=== PATIENT | male | born 1990 | race African-American/Black ===

== ENCOUNTER 2018-02-19 21:22 | Emergency (ER) | payer SELFPAY ==
--- NOTE | 2018-02-19 23:11 | EDM.PDOC ---
ED HPI GENERAL MEDICAL PROBLEM - General Chief Complaint: Respiratory Problem Stated Complaint: CHEST PAIN Time Seen by Provider: 02/19/18 23:10 - History of Present Illness INITIAL COMMENTS - FREE TEXT/NARRATIVE: 27-year-old male presents emergency room with chest pain and neck pain. Patient awoke with pretty significant right-sided neck pain this morning. This pain at times radiates down the side of his right posterior chest wall. It does not go into his arms. He does not have shortness of breath however deep breathing makes the pain a little bit worse. The pain is also worsened by change of position and movement. The pain patient does not have worsening pain with walking or physical exertion unless he pulls the muscles the wrong way. Patient's past medical history is noncontributory and otherwise unremarkable. Family history father with coronary artery disease at approximately age 60 Chest Pain Score (Numeric/FACES): 7 - Related Data Allergies Allergy/AdvReac Type Severity Reaction Status Date / Time No Known Allergies Allergy Verified 02/19/18 21:35 Home Meds: Home Meds . [No Known Home Meds] 02/19/18 [History] Past Medical History - Past Health History Medical/Surgical History: Denies Medical/Surgical History Social & Family History - Tobacco Use Smoking Status *Q: Current Every Day Smoker Years of Tobacco use: 1 Packs/Tins Daily: 0.5 - Recreational Drug Use Recreational Drug Use: No ED ROS GENERAL - Review of Systems Review Of Systems: See Below Constitutional: Reports: No Symptoms HEENT: Reports: No Symptoms Respiratory: Reports: Pleuritic Chest Pain. Denies: No Symptoms Cardiovascular: Reports: No Symptoms Endocrine: Reports: No Symptoms GI/Abdominal: Reports: No Symptoms : Reports: No Symptoms Neurological: Reports: No Symptoms ED EXAM, GENERAL - Physical Exam Exam: See Below Exam Limited By: No Limitations General Appearance: Alert, No Apparent Distress Head: Atraumatic, Normocephalic Neck: Normal Inspection, Supple, Non-Tender, Full Range of Motion Respiratory/Chest: No Respiratory Distress, Lungs Clear, Normal Breath Sounds Cardiovascular: Regular Rate, Rhythm, No Edema, No Murmur GI/Abdominal: Normal Bowel Sounds, Soft, Non-Tender Back Exam: Normal Inspection, Other (Patient has marked discomfort in the right paraspinous muscles in the cervical spine in down into the thoracic spine palpation of this elicits the patient's discomfort.). No: CVA Tenderness (L), CVA Tenderness (R) Neurological: Alert, Oriented, Normal Cognition Skin Exam: Warm, Dry, Intact EKG INTERPRETATION EKG Date: 02/20/18 Rhythm: NSR [place]: Normal P-Wave: Present QRS: Normal ST-T: Other (Nonspecific ST elevation in V1 V2 V3.) QT: Normal Comparison: NA - No Prior EKG EKG Interpretation Comments: Abnormal Course - Vital Signs Last Recorded V/S: Last Vital Signs Temp 36.1 C 02/19/18 21:32 Pulse 62 02/19/18 22:45 Resp 16 02/19/18 22:45 BP 140/99 H 02/19/18 22:45 Pulse Ox 98 02/19/18 22:45 - Orders/Labs/Meds Orders: Active Orders 24 hr Category Date Time Status EKG Documentation Completion [RC] STAT Care 02/19/18 23:20 Active Chest 1V Frontal [CR] Stat Exams 02/19/18 21:42 Taken Labs: Laboratory Tests 02/19/18 02/19/18 02/19/18 Range/Units 22:00 22:00 22:00 WBC 4.02 L (4.23-9.07) K/mm3 RBC 4.49 L (4.63-6.08) M/mm3 Hgb 12.6 L (13.7-17.5) gm/L Hct 37.7 L (40.1-51.0) % MCV 84.0 (79.0-92.2) fl MCH 28.1 (25.7-32.2) pg MCHC 33.4 (32.2-35.5) g/dl RDW Std Deviation 38.4 (35.1-43.9) fL Plt Count 185 (163-337) K/mm3 MPV 11.1 (9.4-12.3) fl Neut % (Auto) 52.1 (34.0-67.9) % Lymph % (Auto) 39.3 (21.8-53.1) % Rhea % (Auto) 7.2 (5.3-12.2) % Eos % (Auto) 1.0 (0.8-7.0) Baso % (Auto) 0.2 (0.1-1.2) % Neut # (Auto) 2.09 (1.78-5.38) K/mm3 Lymph # (Auto) 1.58 (1.32-3.57) K/mm3 Rhea # (Auto) 0.29 L (0.30-0.82) K/mm3 Eos # (Auto) 0.04 (0.04-0.54) K/mm3 Baso # (Auto) 0.01 (0.01-0.08) K/mm3 PT (9.5-12.1) SECONDS INR APTT (24-31) SECONDS D-Dimer, Quantitative < 0.19 L (0.19-0.50) mg/L Sodium 142 (136-145) mEq/L Potassium 3.5 (3.5-5.1) mEq/L Chloride 106 (98-107) mEq/L Carbon Dioxide 26 (21-32) mEq/L Anion Gap 13.5 (5-15) BUN 16 (7-18) mg/dL Creatinine 1.2 (0.7-1.3) mg/dL Est Cr Clr Drug Dosing 107.51 mL/min Estimated GFR (MDRD) > 60 (>60) mL/min BUN/Creatinine Ratio 13.3 L (14-18) Glucose 94 (74-106) mg/dL Calcium 8.7 (8.5-10.1) mg/dL Total Bilirubin 0.5 (0.2-1.0) mg/dL AST 21 (15-37) U/L ALT 26 (16-63) U/L Alkaline Phosphatase 47 (46-116) U/L Troponin I (0.00-0.056) ng/mL Total Protein 7.6 (6.4-8.2) g/dl Albumin 3.9 (3.4-5.0) g/dl Globulin 3.7 gm/dL Albumin/Globulin Ratio 1.1 (1-2) Urine Color (Yellow) Urine Appearance (Clear) Urine pH (5.0-8.0) Ur Specific [place] (1.005-1.030) Urine Protein (Negative) Urine Glucose (UA) (Negative) Urine Ketones (Negative) Urine Occult Blood (Negative) Urine Nitrite (Negative) Urine Bilirubin (Negative) Urine Urobilinogen (0.2-1.0) Ur Leukocyte Esterase (Negative) Urine RBC (0-5) /hpf Urine WBC (0-5) /hpf Ur Epithelial Cells Ur Squamous Epith Cells (0-5) /hpf Urine Bacteria (FEW) /hpf Urine Mucus (FEW) /hpf Urine Opiates Screen (VYZOQR=381) Ur Buprenorphine Scrn (CUTOFF=10) Ur Oxycodone Screen (WAJ7MQ=028) Urine Methadone Screen (DXP5EY=950) Ur Propoxyphene Screen (PJUTYM=347) Ur Barbiturates Screen (GOEPDA=560) Ur Tricyclics Screen (IFYKWT=530) Ur Phencyclidine Scrn (CUTOFF=25) Ur Amphetamine Screen (KLUTFF=079) U Methamphetamines Scrn (XJSBXT=135) U Benzodiazepines Scrn (GJSMPW=108) U Cocaine Metab Screen (YSILQV=432) U Marijuana (THC) Screen (CUTOFF=50) 02/19/18 02/19/18 02/20/18 Range/Units 22:00 22:00 00:20 WBC (4.23-9.07) K/mm3 RBC (4.63-6.08) M/mm3 Hgb (13.7-17.5) gm/L Hct (40.1-51.0) % MCV (79.0-92.2) fl MCH (25.7-32.2) pg MCHC (32.2-35.5) g/dl RDW Std Deviation (35.1-43.9) fL Plt Count (163-337) K/mm3 MPV (9.4-12.3) fl Neut % (Auto) (34.0-67.9) % Lymph % (Auto) (21.8-53.1) % Rhea % (Auto) (5.3-12.2) % Eos % (Auto) (0.8-7.0) Baso % (Auto) (0.1-1.2) % Neut # (Auto) (1.78-5.38) K/mm3 Lymph # (Auto) (1.32-3.57) K/mm3 Rhea # (Auto) (0.30-0.82) K/mm3 Eos # (Auto) (0.04-0.54) K/mm3 Baso # (Auto) (0.01-0.08) K/mm3 PT 11.0 (9.5-12.1) SECONDS INR 1.01 APTT 28 (24-31) SECONDS D-Dimer, Quantitative (0.19-0.50) mg/L Sodium (136-145) mEq/L Potassium (3.5-5.1) mEq/L Chloride (98-107) mEq/L Carbon Dioxide (21-32) mEq/L Anion Gap (5-15) BUN (7-18) mg/dL Creatinine (0.7-1.3) mg/dL Est Cr Clr Drug Dosing mL/min Estimated GFR (MDRD) (>60) mL/min BUN/Creatinine Ratio (14-18) Glucose (74-106) mg/dL Calcium (8.5-10.1) mg/dL Total Bilirubin (0.2-1.0) mg/dL AST (15-37) U/L ALT (16-63) U/L Alkaline Phosphatase (46-116) U/L Troponin I < 0.017 < 0.017 (0.00-0.056) ng/mL Total Protein (6.4-8.2) g/dl Albumin (3.4-5.0) g/dl Globulin gm/dL Albumin/Globulin Ratio (1-2) Urine Color (Yellow) Urine Appearance (Clear) Urine pH (5.0-8.0) Ur Specific [place] (1.005-1.030) Urine Protein (Negative) Urine Glucose (UA) (Negative) Urine Ketones (Negative) Urine Occult Blood (Negative) Urine Nitrite (Negative) Urine Bilirubin (Negative) Urine Urobilinogen (0.2-1.0) Ur Leukocyte Esterase (Negative) Urine RBC (0-5) /hpf Urine WBC (0-5) /hpf Ur Epithelial Cells Ur Squamous Epith Cells (0-5) /hpf Urine Bacteria (FEW) /hpf Urine Mucus (FEW) /hpf Urine Opiates Screen (FRFAHH=724) Ur Buprenorphine Scrn (CUTOFF=10) Ur Oxycodone Screen (HKT9IP=443) Urine Methadone Screen (NDO3MD=180) Ur Propoxyphene Screen (DCVXHP=010) Ur Barbiturates Screen (LCMMPL=695) Ur Tricyclics Screen (QXDPUB=850) Ur Phencyclidine Scrn (CUTOFF=25) Ur Amphetamine Screen (NPMWII=937) U Methamphetamines Scrn (ELIQWN=937) U Benzodiazepines Scrn (JTIEIB=497) U Cocaine Metab Screen (NAOGSU=872) U Marijuana (THC) Screen (CUTOFF=50) 02/20/18 02/20/18 Range/Units 01:15 01:15 WBC (4.23-9.07) K/mm3 RBC (4.63-6.08) M/mm3 Hgb (13.7-17.5) gm/L Hct (40.1-51.0) % MCV (79.0-92.2) fl MCH (25.7-32.2) pg MCHC (32.2-35.5) g/dl RDW Std Deviation (35.1-43.9) fL Plt Count (163-337) K/mm3 MPV (9.4-12.3) fl Neut % (Auto) (34.0-67.9) % Lymph % (Auto) (21.8-53.1) % Rhea % (Auto) (5.3-12.2) % Eos % (Auto) (0.8-7.0) Baso % (Auto) (0.1-1.2) % Neut # (Auto) (1.78-5.38) K/mm3 Lymph # (Auto) (1.32-3.57) K/mm3 Rhea # (Auto) (0.30-0.82) K/mm3 Eos # (Auto) (0.04-0.54) K/mm3 Baso # (Auto) (0.01-0.08) K/mm3 PT (9.5-12.1) SECONDS INR APTT (24-31) SECONDS D-Dimer, Quantitative (0.19-0.50) mg/L Sodium (136-145) mEq/L Potassium (3.5-5.1) mEq/L Chloride (98-107) mEq/L Carbon Dioxide (21-32) mEq/L Anion Gap (5-15) BUN (7-18) mg/dL Creatinine (0.7-1.3) mg/dL Est Cr Clr Drug Dosing mL/min Estimated GFR (MDRD) (>60) mL/min BUN/Creatinine Ratio (14-18) Glucose (74-106) mg/dL Calcium (8.5-10.1) mg/dL Total Bilirubin (0.2-1.0) mg/dL AST (15-37) U/L ALT (16-63) U/L Alkaline Phosphatase (46-116) U/L Troponin I (0.00-0.056) ng/mL Total Protein (6.4-8.2) g/dl Albumin (3.4-5.0) g/dl Globulin gm/dL Albumin/Globulin Ratio (1-2) Urine Color Yellow (Yellow) Urine Appearance Clear (Clear) Urine pH 6.0 (5.0-8.0) Ur Specific [place] 1.020 (1.005-1.030) Urine Protein Negative (Negative) Urine Glucose (UA) Negative (Negative) Urine Ketones Negative (Negative) Urine Occult Blood Negative (Negative) Urine Nitrite Negative (Negative) Urine Bilirubin Negative (Negative) Urine Urobilinogen 0.2 (0.2-1.0) Ur Leukocyte Esterase Negative (Negative) Urine RBC 0-5 (0-5) /hpf Urine WBC 0-5 (0-5) /hpf Ur Epithelial Cells Not Reportable Ur Squamous Epith Cells 0-5 (0-5) /hpf Urine Bacteria Not seen (FEW) /hpf Urine Mucus Not seen (FEW) /hpf Urine Opiates Screen Negative (VEZXXQ=342) Ur Buprenorphine Scrn Negative (CUTOFF=10) Ur Oxycodone Screen Negative (AWD6VS=207) Urine Methadone Screen Negative (PLT9KP=697) Ur Propoxyphene Screen Negative (SHVALN=422) Ur Barbiturates Screen Negative (WFUOUD=892) Ur Tricyclics Screen Negative (EZSQQW=291) Ur Phencyclidine Scrn Negative (CUTOFF=25) Ur Amphetamine Screen Negative (GVCECG=153) U Methamphetamines Scrn Negative (GPSUYS=788) U Benzodiazepines Scrn Negative (LSGPVJ=048) U Cocaine Metab Screen Negative (HPEVDJ=332) U Marijuana (THC) Screen Negative (CUTOFF=50) Meds: Medications Discontinued Medications Generic Name Dose Route Start Last Admin Trade Name Freq PRN Reason Stop Dose Admin Hydrocodone Bitart/Acetaminophen 1 tab 02/19/18 23:22 02/19/18 23:34 [place] 325-5 Mg PO 02/19/18 23:23 1 tab ONETIME ONE Administration - Re-Assessments/Exams Free Text/Narrative Re-Assessment/Exam: 02/20/18 01:54 Patient has done well here in the emergency room of concern I did check an EKG which showed some abnormal ST elevation in V1 V2 and V3 this is probably early repolarization. His troponins have been negative 2 discussed the situation with Dr. Trinidad, on-call garden equipment mechanic at [facility] in [place] who agrees this is early repolarization and recommends discharge if his troponins are negative. The patient had good pain relief with a single [place] we will discharge him with [place] No. 20 from the machine out in the waiting room one or 2 every 6 hours as needed. EKG reviewed with Dr. Santos ER physician at [facility] his heart scores 2 with one point for nonspecific repolarization disturbance and another point for one risk factor. I discussed this with the patient he agrees with being discharged, and follow-up in the clinic and discussed potential cardiac testing such as stress test Departure - Departure Time of Disposition: 02:04 Disposition: Home, Self-Care 01 Clinical Impression: Cervical strain, acute, Hypertension - Discharge Information Referrals: PCP,None [Primary Care Provider] - Forms: ED Department Discharge Additional Instructions: Return to the emergency room with any questions problems worsening symptoms. Use the pain medication as directed. If used on a regular basis take something to prevent constipation such as a good stool softener. Allow 12 hours after using this medication before driving or returning to work. Follow-up at the Hospital clinic in the next day or 2 for recheck [phone]. - My Orders Last 24 Hours: My Active Orders 02/19/18 21:42 Chest 1V Frontal [CR] Stat 02/19/18 23:20 EKG Documentation Completion [RC] STAT - Assessment/Plan Last 24 Hours: My Active Orders 02/19/18 21:42 Chest 1V Frontal [CR] Stat 02/19/18 23:20 EKG Documentation Completion [RC] STAT
[2018-02-19] MEDS ORDERED: Acetaminophen/HYDROcodone 325-5 MG Tab PO ONE (23:22)
--- NOTE | 2018-02-20 07:05 | CR ---
Chest: Portable view of the chest was obtained. Comparison: No prior chest x-ray. Heart is prominent in size but felt to be accentuated from portable technique. Upper mediastinum is normal. Lungs are clear. Bony structures are grossly intact. Impression: 1. Prominent heart size but felt to be accentuated from portable technique. 2. Nothing acute is otherwise seen on portable chest x-ray. Diagnostic code #2
== END 2018-02-20 02:10 | disposition home or self-care (01) ==
LOC: JD.ED 21:22
DX: S16.1XXA Strain of muscle, fascia and tendon at neck level, initial encounter (principal); R07.89 Other chest pain; I10 Essential (primary) hypertension; F17.210 Nicotine dependence, cigarettes, uncomplicated; X58.XXXA Exposure to other specified factors, initial encounter
CPT/HCPCS: 36415; 71045; 80053; 80306; 81001; 84484; 85025; 85379; 85610; 85730; 93005; 99285; A9270; 93010; 99283